=== PATIENT | female | born 1950 | race Caucasian/White ===

== ENCOUNTER 2021-05-31 16:31 | Emergency (ER) | payer MEDICARE, BC ==
[~2021-05-31] VITALS: Ht 167.6 cm; Wt 74.8 kg
[2021-05-31 18:25] LABS: BASOPHILS ABSOLUTE AUTO 0.04 K/mm3 (0.00-0.23); BASOPHILS PERCENT AUTO 1 % (0-2); EOSINOPHILS ABSOLUTE AUTO 0.14 K/mm3 (0.00-0.68); EOSINOPHILS PERCENT AUTO 2 % (0-6); Hematocrit 46.4 % (33.0-51.0); Hemoglobin 15.2 g/dL (11.5-16.0); IMMATURE GRAN ABSOLUTE AUTO 0.02 K/mm3 (0.00-0.10); IMMATURE GRAN PERCENT AUTO 0 % (0-1); LYMPHOCYTES ABSOLUTE AUTO 1.85 K/mm3 (0.84-5.20); LYMPHOCYTES PERCENT AUTO 30 % (21-46); MONOCYTES PERCENT AUTO 13 % (4-13); Mean Corpuscular HGB Conc 32.8 g/dL (31.5-36.5); Mean Corpuscular Volume 101 fL (80-100); Mean Platelet Volume 11.2 fL (9.1-12.4); NEUTROPHILS ABSOLUTE AUTO 3.42 K/mm3 (1.96-9.15); NEUTROPHILS PERCENT AUTO 55 % (41-73); Platelet Count 186 K/mm3 (150-400); RDW Coefficient Variation 12.3 % (11.7-14.2); RDW Standard Deviation 46.3 fL (35.1-46.3); White Blood Cell Count 6.27 K/mm3 (4.00-11.30)
[2021-05-31 19:20] LABS: Alanine Aminotransfer (ALT/SGP 144 U/L (12-78); Albumin, Blood 4.1 g/dL (3.4-5.0); Albumin/Globulin Ratio 0.9 (0.8-1.8); Alk Phos 86 U/L (50-136); Anion Gap 6 mmol/L (6-16); Aspartate Aminotrans (AST/SGOT 110 U/L (12-37); Bilirubin, Total 0.4 mg/dL (0.1-1.0); Blood Urea Nitrogen 17 mg/dL (8-24); Bun/Creatinine Ratio 21.1 (12.0-20.0); CO2, Blood 27 mmol/L (21-32); Chloride, Blood 107 mmol/L (98-108); Creatinine, Blood 0.81 mg/dL (0.40-1.00); Globulin, Blood 4.4 g/dL (2.2-4.0); Glomerular Filtration Rate >60 (60-); Glucose, Blood 98 mg/dL (70-99); Potassium, Blood 4.4 mmol/L (3.5-5.5); Sodium, Blood 140 mmol/L (136-145); Total Protein, Blood 8.5 g/dL (6.4-8.2)
[2021-05-31] MEDS ORDERED: ASPI81CH PO (19:21)
[2021-05-31] MEDS ORDERED: ATORVASTATIN CA20 MG PO (19:21)
[2021-05-31] MEDS ORDERED: NEURONTIN300 MG PO (19:21)
[2021-05-31] MEDS ORDERED: OMEP20ER PO (19:21)
[2021-05-31 20:11] LABS: Creatine Kinase MB 35.6 ng/mL (0.0-3.6); Creatine Kinase MB Index 4.6 (0.0-4.0)
== END 2021-05-31 20:22 | disposition home or self-care (01) ==
LOC: ER 16:31
PROVIDERS: Physician Assistant
DX: M60.9 Myositis, unspecified (principal); R74.01 Elevation of levels of liver transaminase levels; I10 Essential (primary) hypertension; E78.00 Pure hypercholesterolemia, unspecified
CPT/HCPCS: 36415; 80053; 82550; 82553; 85025; 86140; 93971; 99284-25

== ENCOUNTER 2024-04-05 06:29 | Day surgery (SDC) | payer MEDICARE, BC ==
[2024-04-05] VITALS (17 sets, daily range): BP systolic 70–243; BP diastolic 53–100
[~2024-04-05] VITALS: Ht 165.1 cm; Wt 73.9 kg
[~2024-04-05 06:29] MED LIST: ASPI81CH PO; ATORVASTATIN CA20 MG PO; Acetaminophen 500 MG Tab PO SCH; CeFAZolin Sodium 2,000 MG in NS 100 ML IV SCH; Chlorhexidine Mouth Care 15 ML UDC MT SCH; Lactated Ringer's 1,000 ML IV SCH; NEURONTIN300 MG PO; OMEP20ER PO; OxyCODONE HCL 10 MG TABCR PO SCH; Ropivacaine 0.5% HCl/Pf 123.125 MG,EPINEPHrine HCL 0.25 MG,Ketorolac Tromethamine 15 MG... INFIL SCH
[2024-04-05] MEDS ORDERED: Tranexamic Acid 100 ML IV SCH (06:32)
[2024-04-05] MEDS ORDERED: CeFAZolin Sodium 2,000 MG VIAL ONE (06:52)
[2024-04-05] MEDS ORDERED: Midazolam HCl 1MG / ML 2ML Vial ONE (07:23)
[2024-04-05] MEDS ORDERED: propofoL 60 ML IV ONE (07:24)
--- NOTE | 2024-04-05 07:25 | NUR ---
PATIENT'S BP ON RIGHT UPPER ARM WAS 249/94 WITH REPEAT OF 234/100. BP ON LEFT UPPER ARM 152/84. DR GERARDO NOTIFIED. PLAN TO TAKE BPs on LEFT UPPER ARM.
--- NOTE | 2024-04-05 07:31 | NUR ---
DENTURES AND GLASSES BROUGHT TO PACU FOR SAFE KEEPING DURING SURGERY. DENTURES SOAKED IN WATER WITH DENTURE TABLET.
[2024-04-05] MEDS ORDERED: Glycopyrrolate 0.2 MG/ML 5ML VIAL ONE (07:57)
[2024-04-05] MEDS ORDERED: Phenylephrine HCl 100 MCG/ML-NS 10MLSYR (1MG/10ML) ONE (08:03)
[2024-04-05] MEDS ORDERED: FentaNYL Citrate 50 MCG/ML 2 ML Injection IV PRN ×2 (08:25→08:30)
[2024-04-05] MEDS ORDERED: Metoclopramide HCl 5MG / ML 2ML Vial IV PRN ×2 (08:25→09:30)
--- NOTE | 2024-04-05 08:28 | NUR ---
04/05/24 0828 Mya,Pepper SPINAL BLOCK COMPLETED BY UPON ENTRY TO OR.
[2024-04-05] MEDS ORDERED: HYDROmorphone HCl/Pf 1MG SYR IV PRN ×3 (08:30→09:30)
[2024-04-05] MEDS ORDERED: ePHEDrine Sulfate 50 MG/ML 1ML Injection ONE (08:38)
[2024-04-05] MEDS ORDERED: Ondansetron HCl 2 MG / ML 2ML Vial IV PRN ×2 (08:40→09:30)
[2024-04-05] MEDS ORDERED: Prochlorperazine Edisylate 10 mg Vial IV PRN (09:25)
[2024-04-05] MEDS ORDERED: OxyCODONE HCL 5 MG TAB PO PRN ×2 (09:25)
[2024-04-05] MEDS ORDERED: Magnesium Hydroxide Conc 10 ML UDC PO PRN (09:30)
[2024-04-05] MEDS ORDERED: Lactated Ringer's 1,000 ML IV SCH (09:30)
[2024-04-05] MEDS ORDERED: FLU VACC TS2024-25(6MOS UP)/PF 45 MCG/0.5 ML SYRINGE IM SCH (09:30)
[2024-04-05] MEDS ORDERED: Promethazine HCl 25 MG Tab PO PRN (09:35)
[2024-04-05] MEDS ORDERED: DiphenhydrAMINE HCL 25 MG Cap PO PRN (09:35)
[2024-04-05] MEDS ORDERED: Bisacodyl 10 MG Supp PR PRN (09:35)
[2024-04-05] MEDS ORDERED: Ketorolac Tromethamine 15mg Vial IV SCH (12:00)
[2024-04-05] MEDS ORDERED: Gabapentin 300 MG Cap PO SCH (14:00)
[2024-04-05] MEDS ORDERED: ASPI81CH PO (14:48)
--- NOTE | 2024-04-05 15:29 | NUR ---
ASSUMED CARE OF PT FROM MARY Sheppard RN
[2024-04-05] MEDS ORDERED: CeFAZolin Sodium 2,000 MG in NS 100 ML IV SCH (16:00)
[2024-04-05] MEDS ORDERED: Acetaminophen 500 MG Tab PO SCH (16:00)
--- NOTE | 2024-04-05 16:06 | NUR ---
DISCHARGED CLEARED THERAPY. PAIN TOLERABLE. VOIDED. VSS. IV DC'D, CATHETER INTACT. REVIEWED DC INSTRUCTIONS W/PT; VERBALIZED UNDERSTANDING. PT LEFT UNIT IN WC W/POSSESSIONS AND DC PAPERWORK IN HAND TO RIDE OUTSIDE.
[2024-04-05] MEDS ORDERED: Docusate Sodium 100 MG Cap PO SCH (21:00)
[2024-04-05] MEDS ORDERED: Omeprazole 20 MG CapCR PO SCH (21:00)
[2024-04-06] MEDS ORDERED: Aspirin 81 MG Chew PO SCH (09:00)
== END 2024-04-05 16:09 | disposition home or self-care (01) ==
LOC: ORSCMMR 06:29 → ORD 07:30 → SURS 09:58 → ORSCMMR 16:09
PROVIDERS: Orthopaedic Surgery
PROC: 0SR90JZ Replacement of Right Hip Joint with Synthetic Substitute, Open Approach (ICD-10-PCS; principal; 2024-04-05 07:30)
DX: M16.11 Unilateral primary osteoarthritis, right hip (principal); I10 Essential (primary) hypertension; K21.9 Gastro-esophageal reflux disease without esophagitis; Z87.891 Personal history of nicotine dependence; Z79.899 Other long term (current) drug therapy; Z79.82 Long term (current) use of aspirin
CPT/HCPCS: 72170; 97110; 97116; 97162; 97530; A9270; C1776; J0171; J0690; J0735; J1885; J2250; J2371; J2704; J2795; J7120